=== PATIENT | male | born 1960 | race Caucasian/White ===

== ENCOUNTER 2016-12-13 18:38 | Emergency (ER) | payer MEDICAID, OTHER ==
[~2016-12-13] VITALS: Ht 172.7 cm; Wt 104.3 kg
[~2016-12-13 18:38] MED LIST: ASPI-247 PO; ENAL10TA86 OR; GLYB5TAB8 OR; HYDR25TA4 OR; METF-371 OR
[2016-12-13 18:43] VITALS: BP 143/92
[2016-12-13] MEDS ORDERED: IBUPROFEN 600 MG TAB PO ONE (22:45)
== END 2016-12-13 22:38 | disposition home or self-care (01) ==
LOC: ER 18:42
DX: S80.12XA Contusion of left lower leg, initial encounter (principal); S90.02XA Contusion of left ankle, initial encounter; E11.9 Type 2 diabetes mellitus without complications; I10 Essential (primary) hypertension; W22.8XXA Striking against or struck by other objects, initial encounter; Y93.89 Activity, other specified; Y99.8 Other external cause status; Y92.89 Other specified places as the place of occurrence of the external cause
CPT/HCPCS: 73610; 93971